=== PATIENT | female | born 1990 | race African-American/Black ===

== ENCOUNTER 2020-01-31 09:20 | Emergency (ER) | payer OTHER, SELFPAY ==
--- NOTE | 2020-01-31 09:28 | ED_ITS ---
HPI - Abdominal Pain General Chief Complaint: Abdominal Pain Stated Complaint: Suspects appendicitis Time Seen by Provider: 01/31/20 09:27 Source: patient and family Mode of arrival: Ambulatory Limitations: no limitations History of Present Illness HPI narrative: 30-year-old female nonsmoker with noncontributory medical history presents with her and multiple family members with a chief complaint of a few days of right lower quadrant pain and diarrhea. She has had no nausea, vomiting or fever. She denies any urinary complaints such as dysuria, frequency or urgency. She just finished her menses and states it was normal for her. She denies any vaginal discharge. Her pain is persistent and does not radiate. It is made worse by motion and improves with rest. She is concerned about the possibility of having appendicitis. She denies the use of recent antibiotics or eating any bad food. She denies any recent travel. Her has similar complaints in the absence of pain. MD complaint: abdominal pain Onset (ago): day(s) Pain Consistency: constant Location: RLQ Severity: moderate Quality: cramping and aching Radiation: none Relieving factors: rest Exacerbating factors: movement Associated symptoms: denies other symptoms Related Data Home Medications Medication Instructions Recorded Confirmed VIT#96/FERROUS FUM/FA 1 PO Q DAY #0 08/09/10 ( Tablet) Previous Rx's Medication Instructions Recorded ondansetron 4 mg PO Q8H PRN #10 tab 01/31/20 Allergies Allergy/AdvReac Type Severity Reaction Status Date / Time No Known Drug Allergies Allergy Verified 01/31/20 10:23 Review of Systems Constitutional Constitutional: Denies chills, Denies fatigue, Denies fever(s), Denies frequent falls, Denies lethargy and Denies weakness Eyes Eyes: Denies change in vision, Denies eye discharge, Denies irritation and Denies loss of vision ENT Ears, Nose, Mouth, and Throat: Denies change in voice, Denies dizziness, Denies neck pain, Denies sore throat and Denies throat swelling Cardiovascular Cardiovascular: Denies chest pain, Denies irregular heart rhythm, Denies lightheadedness, Denies palpitations, Denies dyspnea, Denies dyspnea on exertion and Denies orthopnea Respiratory Respiratory: Denies cough, Denies dyspnea, Denies dyspnea on exertion and Denies wheezing Gastrointestinal Gastrointestinal: Reports abdominal pain, Denies change in bowel habits, Reports diarrhea, Denies nausea and Denies vomiting Musculoskeletal Musculoskeletal: Denies neck pain and Denies numbness Integumentary/Breasts Skin/Breast: Denies pruritus, Denies erythema, Denies rash and Denies wounds Neurologic Neurologic: Denies behavioral changes, Denies confusion, Denies dizziness, Denies frequent falls, Denies loss of vision, Denies numbness and Denies weakness Psychiatric Psychiatric: Denies anxiety, Denies behavioral changes, Denies confusion, Denies depression, Denies homicidal ideation and Denies suicidal ideation Endocrine Endocrine: Denies fatigue, Denies flushing and Denies palpitations Hematologic/Lymphatic Hematologic/Lymphatic: Denies easy bruising Allergic/Immunologic Allergic/Immunologic: Denies urticaria, Denies throat swelling and Denies wheezing Patient History Social History Smoking Status: Never smoker Smoking Status: Never smoker alcohol intake frequency: 0-2 drinks per day Substance Use Type: does not use Exam Narrative Exam Narrative: GENERAL: [30] year old patient appears stated age. Well- nourished, well-developed patient, in mild distress. HEAD: Atraumatic. Normocephalic. EYES: Pupils equal round and reactive. Extraocular motions intact. No scleral icterus. No injection or drainage. ENT: Nose without bleeding, purulent drainage. Throat without erythema, tonsillar hypertrophy or exudate. Airway patent. NECK: Trachea midline. Non tender CARDIOVASCULAR: Regular rate and rhythm without murmurs, gallops, or rubs. RESPIRATORY: Clear to auscultation. Breath sounds equal bilaterally. No wheezes, rales, or rhonchi. GASTROINTESTINAL: Abdomen soft, mild pain in the right lower quadrant without guarding or rebound, nondistended. EXTREMITIES: No edema or joint tenderness. BACK: Nontender without deformity or crepitance. No flank tenderness. NEURO: AOx3. SKIN: No rash or erythema of visible areas Initial Vital Signs Initial Vital Signs: Vital Signs Temperature 97.7 F 01/31/20 09:30 Pulse Rate 64 01/31/20 09:30 Respiratory Rate 20 01/31/20 09:30 Blood Pressure 123/68 01/31/20 09:30 Pulse Oximetry 100 01/31/20 09:30 Course Orders Ordered: ED Orders 01/31/20 09:40 Complete Blood Count AUTO DIFF Stat Comprehensive Metabolic Panel Stat Lipase Stat 01/31/20 09:49 US pelvic complete Stat 01/31/20 11:21 CT abdomen pelvis w con Stat Discontinued Medications Sodium Chloride (Normal Saline 0.9%) 1,000 mls @ 1,000 mls/hr IV BOLUS ONE Stop: 01/31/20 10:48 Last Infusion: 01/31/20 12:23 Dose: 0 mls/hr Documented by: Admin: 01/31/20 10:25 Dose: 1,000 mls/hr Documented by: ALEX Ondansetron HCl (Zofran) 4 mg IV NOW ONE Stop: 01/31/20 09:50 Last Admin: 01/31/20 10:25 Dose: 4 mg Documented by: ALEX Vital Signs Vital signs: Vital Signs - 8 hr 01/31/20 09:30 01/31/20 11:16 01/31/20 12:44 Temperature 97.7 F Pulse Rate 64 66 66 Respiratory Rate 20 18 Blood Pressure 123/68 119/81 Pulse Oximetry 100 100 100 01/31/20 12:45 Temperature Pulse Rate 67 Respiratory Rate Blood Pressure 114/75 Pulse Oximetry 99 MDM - Abdominal Pain Lab Data Result diagrams: 01/31/20 09:40 01/31/20 09:40 Labs: Lab Results 01/31/20 01/31/20 Range/Units 09:40 09:40 WBC 5.0 (4.5-11.0) X10^3/uL RBC 4.05 (4.0-5.2) X10^6/uL Hgb 12.1 (12.0-16.0) g/dL Hct 37.0 (36-46) % MCV 91.2 (80-100) fL MCH 30.0 (26-34) PG MCHC 32.9 (30-36) % RDW 12.9 (11.6-14.8) % Plt Count 439 H (150-400) X10^3/uL Neut % (Auto) 36.8 L (50-75) % Lymph % (Auto) 49.8 H (25-40) % [place] % (Auto) 7.9 (3-14) % Eos % (Auto) 5.0 H (2-4) % Baso % (Auto) 0.5 (0-2) % Neut # (Auto) 1800 (0349-1509) /uL Lymph # (Auto) 2500 (9365-1340) /uL M[place]one # (Auto) 400 (0-900) /uL Eos # (Auto) 200 (0-450) /uL Baso # (Auto) 0 (0-100) /uL Sodium 141 (137-145) mmol/L Potassium 4.4 (3.4-5.1) mmol/L Chloride 108 H (98-107) mmol/L Carbon Dioxide 26 (22-32) mmol/L BUN 7 (7-17) mg/dL Creatinine 0.64 (0.52-1.04) mg/dL Estimated GFR > 60.0 (>60) mL/min BUN/Creatinine Ratio 10.9 (6-22) Glucose 86 (70-100) mg/dL Calcium 9.5 (8.4-10.2) mg/dL Total Bilirubin 0.3 (0.2-1.3) mg/dL AST 31 (14-36) IU/L ALT 31 (<35) IU/L Alkaline Phosphatase 52 (38-126) U/L Total Protein 8.3 H (6.3-8.2) g/dL Albumin 4.6 (3.5-5.0) g/dL Globulin 3.7 (1.7-4.1) g/dL Albumin/Globulin Ratio 1.2 (1.0-2.8) Lipase 138 (23-300) U/L Point of care testing: Point of Care Testing Test Results Negative Urine Dip Bedside Urine Glucose Negative Bedside Urine Bilirubin - Negative Bedside Urine Ketone - Negative Urine Specific [place] 1.020 Bedside Urine Occult Blood - Negative Bedside Urine pH 7.0 Bedside Urine Protein - Negative Bedside Urine Urobilinogen - Negative Bedside Urine Nitrite - Negative Bedside Urine Leukocytes - Negative Esterase Imaging Data CT scan - abdomen/pelvis: Radiologist's Impression: [address] [address] [address] Scan Report Signed Patient: Irma Deleon LMR#: [id number] : 1990Acct:[id number] Age/Sex: 30 / FDate of Service: 01/31/20 Loc: ED Accession Number: [id number] Procedure: CT abdomen pelvis w con Ordering Provider: Chuck Warren D.O. PROCEDURE: CT ABDOMEN PELVIS W CON INDICATIONS: severe RLQ pain TECHNIQUE: After the administration of intravenous contrast, 5 mm thick sections acquired from the diaphragm to the symphysis. 5 mm coronal and sagittal reformats were acquired. For radiation dose reduction, the following was used: automated exposure control, adjustment of mA and/or kV according to patient size. COMPARISON: None. FINDINGS: Image quality: Excellent. ABDOMEN: Lung bases: Lung bases are clear. Heart size is normal. Solid organs: Evaluation of the liver demonstrates no focal hepatic lesions. The gallbladder appears within normal limits without calcified gallstones. Biliary system is non-dilated. Pancreas enhances normally. No peripancreatic fat stranding or fluid collections. No pancreatic duct dilatation. The spleen is normal in size. No adrenal nodules. Kidneys demonstrate no hydronephrosis. Peritoneum and bowel: Bowel loops demonstrate normal wall thickness and caliber. The appendix is normal in appearance. There is trace free fluid in the pelvis which appears within physiologic limits. No free air.. Nodes and vessels: No retroperitoneal or mesenteric adenopathy by size criteria. Aorta and inferior vena cava are normal in size. Miscellaneous: No ventral hernias. PELVIS: Genitourinary: Bladder wall thickness is normal. There is a small amount of fluid in the endometrium with hyperemia of the uterus likely representing physiologic changes. Ovaries appear within normal size limits for age. Miscellaneous: No inguinal hernias or adenopathy. Bones: No suspicious bony lesions. No vertebral body compression fractures. IMPRESSION: 1. No definite acute intra-abdominal abnormality. Specifically, no evidence of appendicitis. Dictated by: Tomas Julio M.D. on 01/31/2020 at 11:10 Approved by: Tomas Julio M.D. on 01/31/2020 at 11:16 US Pelvic: Radiologist's Impression: [address] [address] Ultrasound Report Signed Patient: Irma Deleon LMR#: [id number] : 1990Acct:[id number] Age/Sex: 30 / FDate of Service: 01/31/20 Loc: ED Accession Number: [id number] Procedure: US pelvic complete Ordering Provider: Chuck Warren D.O. PROCEDURE: US PELVIC COMPLETE INDICATIONS: RLQ PAIN TECHNIQUE: Real-time scanning was performed of the pelvic organs, with image documentation. Additional endovaginal scanning was necessary due to incomplete visualization of the adnexal and endometrial structures by transabdominal scanning. COMPARISON: None. FINDINGS: Transabdominal scanning: Limited scanning through the kidneys shows no hydronephrosis. No pathologic free abdominal or pelvic fluid. The appendix was not discretely visualized sonographically. Endovaginal scanning: Uterus: Uterus is normal in size at 8.4 x 4.8 x 6.5 cm. The endometrium measures 0.4 cm in combined thickness. There is minimal endometrial fluid within the lower uterine segment. Ovaries: The right ovary measures 3.6 x 1.9 x 1.6 cm and the left ovary measures 4.3 x 2.4 x 2.1 cm. There is patent arterial flow demonstrated within both ovaries. IMPRESSION: 1. Appendix not discretely visualized sonographically. 2. Normal sonographic appearance of the uterus and ovaries. Dictated by: Tomas Julio M.D. on 01/31/2020 at 10:07 Approved by: Tomas Julio M.D. on 01/31/2020 at 10:13 [facility] Narrative Medical decision making narrative: Multiple etiologies for patient's symptoms considered including: [Appendicitis versus bowel obstruction versus ovarian problem versus kidney stone versus other] Patient's symptoms improved over duration of stay with above-stated therapies. Findings and discharge diagnosis discussed with patient/family followed by verbalization of understanding Return precautions discussed with patient/family whom verbalize understanding. Discharge Plan Departure Patient Disposition: Home Clinical Impression: Abdominal pain Qualifiers: Abdominal location: right lower quadrant Qualified Code(s): R10.31 - Right lower quadrant pain Discharge Date/Time: 01/31/20 13:17 Instructions: DI for Abdominal Pain-Adult Activity Restrictions/Additional Instructions: *You have been diagnosed with [ abdominal pain, your labs, CT and Ultrasound are very reassuring ] *What to do: *Take medications as directed: Prescription electronically transmitted to [facility] at your request *Follow up with your primary care provider in 2-3 days, call for an appointment. Let them know you were seen in the Emergency Department and that we ask that you be seen in follow up 1. Drink plenty of fluids with frequent small sips. 2. For the next 24 hours a clear liquid diet is advised. After that please employ a B.R.A.T. diet which would include bananas, rice, apples, toast and other mild food items 3. Please take medications as directed. 4. Please return to the emergency Department for any worsening or persistent symptoms, such as increasing pain or fever. Prescriptions: New ondansetron 4 mg tablet,disintegrating 4 mg PO Q8H PRN (Reason: nausea and vomiting) Qty: 10 RF: 0 No Action VIT#96/FERROUS FUM/FA ( Tablet) 1 PO Q DAY Qty: 0 RF: 0
[2020-01-31 09:30] VITALS: BP 123/68; PULSE 64; RESP 20; TEMP 36.5; O2SAT 100; BMI 23.3
--- NOTE | 2020-01-31 09:49 | DI.US.S_ITS ---
PROCEDURE: US PELVIC COMPLETE INDICATIONS: RLQ PAIN TECHNIQUE: Real-time scanning was performed of the pelvic organs, with image documentation. Additional endovaginal scanning was necessary due to incomplete visualization of the adnexal and endometrial structures by transabdominal scanning. COMPARISON: None. FINDINGS: Transabdominal scanning: Limited scanning through the kidneys shows no hydronephrosis. No pathologic free abdominal or pelvic fluid. The appendix was not discretely visualized sonographically. Endovaginal scanning: Uterus: Uterus is normal in size at 8.4 x 4.8 x 6.5 cm. The endometrium measures 0.4 cm in combined thickness. There is minimal endometrial fluid within the lower uterine segment. Ovaries: The right ovary measures 3.6 x 1.9 x 1.6 cm and the left ovary measures 4.3 x 2.4 x 2.1 cm. There is patent arterial flow demonstrated within both ovaries. IMPRESSION: 1. Appendix not discretely visualized sonographically. 2. Normal sonographic appearance of the uterus and ovaries. Dictated by: Tomas Julio M.D. on 01/31/2020 at 10:07 Approved by: Tomas Julio M.D. on 01/31/2020 at 10:13
[2020-01-31 10:03] LABS: Add Manual Diff / Slide Review NO; Basophils Absolute Auto 0 /uL (0-100); Basophils Percent Auto 0.5 % (0-2); Eosinophils Absolute Auto 200 /uL (0-450); Hemoglobin 12.1 g/dL (12.0-16.0); Lymphocytes Absolute Auto 2500 /uL (1100-4500); Lymphocytes Percent Auto 49.8 % (25-40); Mean Corpuscular HGB Conc 32.9 % (30-36); Mean Corpuscular Volume 91.2 fL (80-100); Monocytes Absolute Auto 400 /uL (0-900); Monocytes Percent Auto 7.9 % (3-14); Neutrophils Absolute Auto 1800 /uL (1500-7000); Neutrophils Percent Auto 36.8 % (50-75); Platelet Count 439 X10^3/uL (150-400); Red Blood Cell Count 4.05 X10^6/uL (4.0-5.2); Red Cell Distribution Width 12.9 % (11.6-14.8)
[2020-01-31 10:09] LABS: Alanine Aminotransferase 31 IU/L (<35); Albumin 4.6 g/dL (3.5-5.0); Albumin Globulin Ratio 1.2 (1.0-2.8); Alkaline Phosphatase 52 U/L (38-126); Aspartate Aminotransferase 31 IU/L (14-36); BUN Creatinine Ratio 10.9 (6-22); Bilirubin Total 0.3 mg/dL (0.2-1.3); Blood Urea Nitrogen 7 mg/dL (7-17); Calcium 9.5 mg/dL (8.4-10.2); Carbon Dioxide 26 mmol/L (22-32); Chloride 108 mmol/L (98-107); Estimated Glomerular Filt Rate > 60.0 mL/min (>60); Globulin 3.7 g/dL (1.7-4.1); Glucose 86 mg/dL (70-100); HEMOLYSIS < 15 (0-50); Lipase 138 U/L (23-300); Potassium 4.4 mmol/L (3.4-5.1); Sodium 141 mmol/L (137-145); Total Protein 8.3 g/dL (6.3-8.2)
[2020-01-31] MEDS: SODIUM CHLORIDE 0.9% 1,000 ML 1000 ML IV (10:25)
[2020-01-31] MEDS: ONDANSETRON 4 MG/2 ML INJ IV (10:25)
[2020-01-31 11:16] VITALS: BP 119/81; PULSE 61; PULSE 66; RESP 18; O2SAT 100
--- NOTE | 2020-01-31 11:21 | DI.CT.S_ITS ---
PROCEDURE: CT ABDOMEN PELVIS W CON INDICATIONS: severe RLQ pain TECHNIQUE: After the administration of intravenous contrast, 5 mm thick sections acquired from the diaphragm to the symphysis. 5 mm coronal and sagittal reformats were acquired. For radiation dose reduction, the following was used: automated exposure control, adjustment of mA and/or kV according to patient size. COMPARISON: None. FINDINGS: Image quality: Excellent. ABDOMEN: Lung bases: Lung bases are clear. Heart size is normal. Solid organs: Evaluation of the liver demonstrates no focal hepatic lesions. The gallbladder appears within normal limits without calcified gallstones. Biliary system is non-dilated. Pancreas enhances normally. No peripancreatic fat stranding or fluid collections. No pancreatic duct dilatation. The spleen is normal in size. No adrenal nodules. Kidneys demonstrate no hydronephrosis. Peritoneum and bowel: Bowel loops demonstrate normal wall thickness and caliber. The appendix is normal in appearance. There is trace free fluid in the pelvis which appears within physiologic limits. No free air.. Nodes and vessels: No retroperitoneal or mesenteric adenopathy by size criteria. Aorta and inferior vena cava are normal in size. Miscellaneous: No ventral hernias. PELVIS: Genitourinary: Bladder wall thickness is normal. There is a small amount of fluid in the endometrium with hyperemia of the uterus likely representing physiologic changes. Ovaries appear within normal size limits for age. Miscellaneous: No inguinal hernias or adenopathy. Bones: No suspicious bony lesions. No vertebral body compression fractures. IMPRESSION: 1. No definite acute intra-abdominal abnormality. Specifically, no evidence of appendicitis. Dictated by: Tomas Julio M.D. on 01/31/2020 at 11:10 Approved by: Tomas Julio M.D. on 01/31/2020 at 11:16
[2020-01-31 12:44] VITALS: PULSE 66; O2SAT 100
[2020-01-31 12:45] VITALS: BP 114/75; PULSE 67; O2SAT 99
== END 2020-01-31 13:17 | disposition home or self-care (01) ==
PROVIDERS: Emergency Provider Emergency Medicine
DX: R10.31 Right lower quadrant pain (principal); R19.7 Diarrhea, unspecified
CPT/HCPCS: 36415; 74177; 76830; 76856; 80053; 81003; 81025; 83690; 85025; 96361; 96374; 99284; J2405

== ENCOUNTER 2021-09-16 15:05 | Emergency (ER) | payer OTHER, MEDICAID, SELFPAY ==
[2021-09-16 15:38] VITALS: BP 124/79; PULSE 77; RESP 18; TEMP 36.2; O2SAT 97; BMI 27.4
== END 2021-09-16 16:25 | disposition left against medical advice (07) ==
PROVIDERS: Emergency Provider Emergency Medicine
CPT/HCPCS: 99281